=== PATIENT | male | born 1975 | race Hispanic/Latino ===

== ENCOUNTER 2016-09-30 22:04 | Observation (INO) | payer OTHER ==
--- NOTE | 2016-09-30 23:03 | ED PDOC ---
HPI: Chest Pain Time Seen by Provider: 09/30/16 22:26 Chief Complaint (Nursing): Chest Pain Chief Complaint (Provider): Chest pain History Per: Patient History/Exam Limitations: no limitations Onset/Duration Of Symptoms: Hrs (2), Waxing/Waning Severity: Moderate Quality: Pressure, "Pain" Associated Symptoms: denies: Nausea, Diaphoresis Additional History Per: Patient Additional Complaint(s): The pt is a 41yo male with PMHx of HTN, shoulder bursitis, recreational substance abuse, presents to the ED for evaluation of atraumatic, left sided, pressure like chest pain which started while laying down, since 2 hours TRENCH TRIMMER FINE. Pt admits to using cocaine yesterday as well as illicit ketamine. he denies nay nausea, vomiting, diarrhea and diaphoresis. At present, pt offers no additional medical complaints. PMD: None provided Past Medical History Reviewed: Historical Data, Nursing Documentation, Vital Signs Vital Signs: Last Vital Signs Temp 98.2 F 09/30/16 22:14 Pulse 87 10/01/16 04:27 Resp 16 10/01/16 04:27 BP 133/76 10/01/16 04:27 Pulse Ox 97 10/01/16 03:24 - Medical History PMH: Fractures (l arm), HTN (ON NO MEDS) Denies: Chronic Kidney Disease - Surgical History Other surgeries: left forearm reconstructive surgery - Family History Family History: States: No Known Family Hx - Social History Current smoker - smoking cessation education provided: Yes Alcohol: > 2 Drinks/Day Drugs: Cannabis, Cocaine, Other (ketamine) - Immunization History Hx Tetanus Toxoid Vaccination: No Hx Influenza Vaccination: No Hx Pneumococcal Vaccination: No - Home Medications Home Medications: Ambulatory Orders Medication Instructions Recorded Esomeprazole Magnesium [Nexium] 40 mg PO Q12 09/30/16 Hydrocodone/Acetaminophen [Vicodin 1 tab PO Q8 09/30/16 Es 300 mg-7.5 mg] - Allergies Allergies/Adverse Reactions: Allergies Allergy/AdvReac Type Severity Reaction Status Date / Time No Known Allergies Allergy Verified 09/30/16 22:17 Review of Systems ROS Statement: Except As Marked, All Systems Reviewed And Found Negative Cardiovascular: Positive for: Chest Pain Gastrointestinal: Negative for: Nausea, Vomiting, Diarrhea Physical Exam - Reviewed Nursing Documentation Reviewed: Yes Vital Signs Reviewed: Yes - Physical Exam Appears: Positive for: Well, Non-toxic, No Acute Distress Head Exam: Positive for: ATRAUMATIC, NORMAL INSPECTION, NORMOCEPHALIC Skin: Positive for: Normal Color, Warm, DRY Eye Exam: Positive for: Normal appearance Neck: Positive for: Normal, Supple Cardiovascular/Chest: Positive for: Regular Rate, Rhythm. Negative for: Murmur Respiratory: Positive for: Normal Breath Sounds. Negative for: Respiratory Distress Gastrointestinal/Abdominal: Positive for: Normal Exam Extremity: Positive for: Normal ROM. Negative for: Deformity Neurologic/Psych: Positive for: Alert, Oriented - Laboratory Results Result Diagrams: 09/30/16 23:08 09/30/16 23:08 - ECG O2 Sat by Pulse Oximetry: 98 (RA) Pulse Ox Interpretation: Normal Medical Decision Making Medical Decision Making: Time: 2225 Impression: Chest pain in setting of cocaine abuse Plan: -- EKG -- CBC -- CMP -- Troponin -- CXR --Reassess Scribe Attestation: Documented by Shaunna Arce acting as a scribe for Juan Holt MD. Provider Attestation: All medical record entries made by the Scribe were at my direction and personally dictated by me. I have reviewed the chart and agree that the record accurately reflects my personal performance of the history, physical exam, medical decision making, and the department course for this patient. I have also personally directed, reviewed, and agree with the discharge instructions and disposition. ED OBSERVATION Date of observation admission: 09/30/16 Time of observation admission: 22:55 - Progress Note Progress Note: 09/30/16 23:00 Case discussed with José Luis Ovalle who is aware. Pt to be admitted under medical service Disposition - Clinical Impression Clinical Impression: Chest pain - Patient ED Disposition Is Patient to be Admitted: Yes Counseled Patient/Family Regarding: Studies Performed, Diagnosis - Disposition Disposition Time: 22:55 Condition: STABLE - Pt Status Changed To: Hospital Disposition Of: Observation
[2016-09-30 23:11] LABS: BASO % 0.6 % (0.0-2.0); EOS # 0.2 K/uL (0.0-0.7); EOS % 2.2 % (0.0-4.0); LYMPH # 2.5 K/uL (1.0-4.3); MEAN CELL VOLUME 88.9 fl (80.0-94.0); MEAN CORPUSCULAR HEMOGLOBIN 29.5 pg (27.0-31.0); MEAN CORPUSCULAR HGB CONC 33.2 g/dL (33.0-37.0); MEAN PLATELET VOLUME 7.8 fl (7.2-11.7); MONO # 0.8 K/uL (0.0-0.8); MONO % 10.1 % (0.0-10.0); NEUT # 4.3 K/uL (1.8-7.0); NEUT % 55.1 % (50.0-75.0); RED CELL DISTRIBUTION WIDTH 13.2 % (11.5-14.5); WHITE BLOOD COUNT 7.8 K/uL (4.8-10.8)
[2016-09-30 23:23] LABS: ALB/GLOB RATIO 1.2 (1.0-2.1); ALKALINE PHOSPHATASE 133 U/L (38-126); ALT/SGPT 59 U/L (21-72); AST/SGOT 43 U/L (17-59); BILIRUBIN,TOTAL 0.5 mg/dl (0.2-1.3); BLOOD UREA NITROGEN 22 mg/dl (9-20); CALCIUM 8.5 mg/dL (8.4-10.2); CARBON DIOXIDE 25 mmol/L (22-30); CHLORIDE 108 mmol/L (98-107); GFR AFRICAN-AMERICAN > 60; GLUCOSE,RANDOM 131 mg/dL (75-110); POTASSIUM 3.8 MMOL/L (3.6-5.0); SODIUM 147 mmol/l (132-148); TOTAL PROTEIN 7.3 G/DL (6.3-8.2)
[2016-09-30] MEDS ORDERED: Oxycodone/Acetaminophen 5/325 mg Tab ONE (23:49)
[2016-09-30] MEDS ORDERED: Oxycodone/Acetaminophen 5/325 mg Tab PO ONE (23:50)
[2016-10-01 07:24] LABS: BASO # 0.1 K/uL (0.0-0.2); BASO % 0.7 % (0.0-2.0); EOS # 0.2 K/uL (0.0-0.7); EOS % 3.1 % (0.0-4.0); LYMPH # 2.6 K/uL (1.0-4.3); LYMPH % 36.1 % (20.0-40.0); MEAN CORPUSCULAR HEMOGLOBIN 29.5 pg (27.0-31.0); MEAN CORPUSCULAR HGB CONC 33.1 g/dL (33.0-37.0); MEAN PLATELET VOLUME 8.2 fl (7.2-11.7); MONO # 0.9 K/uL (0.0-0.8); MONO % 12.3 % (0.0-10.0); NEUT # 3.4 K/uL (1.8-7.0); NEUT % 47.8 % (50.0-75.0); NRBC % 0.1 % (0.0-0.0); RED CELL DISTRIBUTION WIDTH 13.4 % (11.5-14.5); WHITE BLOOD COUNT 7.2 K/uL (4.8-10.8)
[2016-10-01 07:38] LABS: ALB/GLOB RATIO 1.2 (1.0-2.1); ALKALINE PHOSPHATASE 133 U/L (38-126); ALT/SGPT 55 U/L (21-72); AST/SGOT 33 U/L (17-59); BILIRUBIN,TOTAL 0.6 mg/dl (0.2-1.3); BLOOD UREA NITROGEN 25 mg/dl (9-20); CALCIUM 8.6 mg/dL (8.4-10.2); CARBON DIOXIDE 27 mmol/L (22-30); CHLORIDE 107 mmol/L (98-107); GFR AFRICAN-AMERICAN > 60; GLUCOSE,RANDOM 105 mg/dL (75-110); SODIUM 147 mmol/l (132-148); TOTAL PROTEIN 6.6 G/DL (6.3-8.2)
--- NOTE | 2016-10-01 08:19 | CP.PCM.HP ---
History of Present Illness - History of Present Illness History of Present Illness: pt admitted for left sided flank/cp. at present pt is pain free except for r shoulder pain where pt has slap tear. is on chronic vicodin for same. pt states firday night did 2 lines of cocaine and ketamine. states cp started sat night then came to er 30 min later. no pain since. bw noted. trops x 2 negative. imaging noted. pending cardio consult. ekg noted. Present on Admission - Present on Admission Any Indicators Present on Admission: No Review of Systems - Cardiovascular Cardiovascular: As Per HPI, Chest Pain - Musculoskeletal Musculoskeletal: As Per HPI, Arthralgias Past Patient History - Infectious Disease Hx of Infectious Diseases: None - Past Medical History & Family History Past Medical History?: Yes - Past Social History Smoking Status: Light Smoker < 10 Cigarettes Daily - CARDIAC Hx Cardiac Disorders: Yes Hx Hypertension: Yes (ON NO MEDS) - PULMONARY Hx Respiratory Disorders: No - NEUROLOGICAL Hx Neurological Disorder: No - HEENT Hx HEENT Problems: No - RENAL Hx Chronic Kidney Disease: No - ENDOCRINE/METABOLIC Hx Endocrine Disorders: No - HEMATOLOGICAL/ONCOLOGICAL Hx Blood Disorders: No Hx AIDS: No Hx Human Immunodeficiency Virus (HIV): No - INTEGUMENTARY Hx Dermatological Problems: No - MUSCULOSKELETAL/RHEUMATOLOGICAL Hx Musculoskeletal Disorders: Yes Hx Falls: Yes Hx Fractures: Yes (l arm) - GASTROINTESTINAL Hx Gastrointestinal Disorders: No - GENITOURINARY/GYNECOLOGICAL Hx Genitourinary Disorders: No - PSYCHIATRIC Hx Psychophysiologic Disorder: No Hx Substance Use: Yes (uses cannabis,cocaine) - SURGICAL HISTORY Hx Surgeries: Yes Other/Comment: left arm reconstructive surgery with nerve graft 2006 - ANESTHESIA Hx Anesthesia: Yes Hx Anesthesia Reactions: No Hx Malignant Hyperthermia: No Meds Allergies/Adverse Reactions: Allergies Allergy/AdvReac Type Severity Reaction Status Date / Time No Known Allergies Allergy Verified 09/30/16 22:17 Physical Exam - Constitutional Appears: Well, Non-toxic, No Acute Distress - Head Exam Head Exam: ATRAUMATIC, NORMAL INSPECTION, NORMOCEPHALIC - Eye Exam Eye Exam: EOMI, Normal appearance, PERRL Pupil Exam: NORMAL ACCOMODATION, PERRL - ENT Exam ENT Exam: Mucous Membranes Moist, Normal Exam - Neck Exam Neck exam: Positive for: Normal Inspection - Respiratory Exam Respiratory Exam: Clear to Auscultation Bilateral, NORMAL BREATHING PATTERN - Cardiovascular Exam Cardiovascular Exam: REGULAR RHYTHM, RRR, +S1, +S2 - GI/Abdominal Exam GI & Abdominal Exam: Normal Bowel Sounds, Soft. absent: Tenderness - Rectal Exam Rectal Exam: NORMAL INSPECTION - Extremities Exam Extremities exam: Positive for: full ROM, normal capillary refill, normal inspection, tenderness, pedal pulses present Additional comments: pain w/ bereket nd decr rom r shoulder - Back Exam Back exam: NORMAL INSPECTION - Neurological Exam Neurological exam: Alert, CN II-XII Intact, Normal Gait, Oriented x3, Reflexes Normal - Psychiatric Exam Psychiatric exam: Normal Affect, Normal Mood - Skin Skin Exam: Dry, Intact, Normal Color, Warm Results - Vital Signs Recent Vital Signs: Last Vital Signs Temp 97.9 F 10/01/16 05:11 Pulse 72 10/01/16 05:11 Resp 18 10/01/16 05:11 BP 154/110 H 10/01/16 05:11 Pulse Ox 98 10/01/16 05:11 - Labs Result Diagrams: 10/01/16 05:30 10/01/16 05:30 Labs: Laboratory Results - last 24 hr 09/30/16 10/01/16 23:08 05:30 WBC 7.8 7.2 RBC 4.72 4.38 L Hgb 13.9 12.9 Hct 42.0 39.0 MCV 88.9 89.0 MCH 29.5 29.5 MCHC 33.2 33.1 RDW 13.2 13.4 Plt Count 267 231 MPV 7.8 8.2 Neut % (Auto) 55.1 47.8 L Lymph % (Auto) 32.0 36.1 Clinch % (Auto) 10.1 H 12.3 H Eos % (Auto) 2.2 3.1 Baso % (Auto) 0.6 0.7 Neut # 4.3 3.4 Lymph # 2.5 2.6 Clinch # 0.8 0.9 H Eos # 0.2 0.2 Baso # 0.0 0.1 Sodium 147 147 Potassium 3.8 4.0 Chloride 108 H 107 Carbon Dioxide 25 27 Anion Gap 18 18 BUN 22 H 25 H Creatinine 0.9 0.9 Est GFR ( Amer) > 60 > 60 Est GFR (Non-Af Amer) > 60 > 60 Random Glucose 131 H 105 Calcium 8.5 8.6 Total Bilirubin 0.5 0.6 AST 43 33 ALT 59 55 Alkaline Phosphatase 133 H 133 H Troponin I < 0.0120 < 0.0120 Total Protein 7.3 6.6 Albumin 3.9 3.6 Globulin 3.4 3.0 Albumin/Globulin Ratio 1.2 1.2 Assessment & Plan (1) Chest pain Assessment and Plan: trophs, asa, cardio likey dc Status: Acute (2) Right shoulder pain Assessment and Plan: vicodin-dc at length ilicit drug use w/ this med outpt ortho Status: Acute (3) DVT prophylaxis Assessment and Plan: scd nad aheose ambulation Status: Acute Decision To Admit - Pt Status Changed To: Hospital Disposition Of: Observation - . Bed Request Type: Telemetry Admitting Physician: Kunal Arshad
[2016-10-01] MEDS ORDERED: Pantoprazole 40 mg EC Tab PO SCH (09:00)
[2016-10-01] MEDS ORDERED: Oxycodone/Acetaminophen 5/325 mg Tab PO PRN (09:18)
--- NOTE | 2016-10-01 12:26 | RAD ---
HISTORY: Chest pain. Technique: Single view portable erect @ 23:08. COMPARISON: 05/07/2008. FINDINGS: LUNGS: No active pulmonary disease. PLEURA: No significant pleural effusion identified, no pneumothorax apparent. CARDIOVASCULAR: Normal. OSSEOUS STRUCTURES: No significant abnormalities. VISUALIZED UPPER ABDOMEN: Normal. OTHER FINDINGS: None. IMPRESSION: No active disease. No significant interval change compared to the prior examination(s).
--- NOTE | 2016-10-01 15:33 | CP.PCM.DIS ---
Provider - Provider Date of Admission: 09/30/16 22:55 Attending physician: Kunal Arshad MD Time Spent in preparation of Discharge (in minutes): 15 Diagnosis - Discharge Diagnosis (1) Chest pain Status: Acute (2) Right shoulder pain Status: Acute (3) DVT prophylaxis Status: Acute Hospital Course - Lab Results Lab Results: Most Recent Lab Values WBC 7.2 K/uL (4.8-10.8) 10/01/16 05:30 RBC 4.38 Mil/uL (4.40-5.90) L 10/01/16 05:30 Hgb 12.9 g/dL (12.0-18.0) 10/01/16 05:30 Hct 39.0 % (35.0-51.0) 10/01/16 05:30 MCV 89.0 fl (80.0-94.0) 10/01/16 05:30 MCH 29.5 pg (27.0-31.0) 10/01/16 05:30 MCHC 33.1 g/dL (33.0-37.0) 10/01/16 05:30 RDW 13.4 % (11.5-14.5) 10/01/16 05:30 Plt Count 231 K/uL (130-400) 10/01/16 05:30 MPV 8.2 fl (7.2-11.7) 10/01/16 05:30 Neut % (Auto) 47.8 % (50.0-75.0) L 10/01/16 05:30 Lymph % (Auto) 36.1 % (20.0-40.0) 10/01/16 05:30 [place] % (Auto) 12.3 % (0.0-10.0) H 10/01/16 05:30 Eos % (Auto) 3.1 % (0.0-4.0) 10/01/16 05:30 Baso % (Auto) 0.7 % (0.0-2.0) 10/01/16 05:30 Neut # 3.4 K/uL (1.8-7.0) 10/01/16 05:30 Lymph # 2.6 K/uL (1.0-4.3) 10/01/16 05:30 [place] # 0.9 K/uL (0.0-0.8) H 10/01/16 05:30 Eos # 0.2 K/uL (0.0-0.7) 10/01/16 05:30 Baso # 0.1 K/uL (0.0-0.2) 10/01/16 05:30 Sodium 147 mmol/l (132-148) 10/01/16 05:30 Potassium 4.0 MMOL/L (3.6-5.0) 10/01/16 05:30 Chloride 107 mmol/L (98-107) 10/01/16 05:30 Carbon Dioxide 27 mmol/L (22-30) 10/01/16 05:30 Anion Gap 18 (10-20) 10/01/16 05:30 BUN 25 mg/dl (9-20) H 10/01/16 05:30 Creatinine 0.9 mg/dL (0.8-1.5) 10/01/16 05:30 Est GFR ( Amer) > 60 10/01/16 05:30 Est GFR (Non-Af Amer) > 60 10/01/16 05:30 Random Glucose 105 mg/dL (75-110) 10/01/16 05:30 Calcium 8.6 mg/dL (8.4-10.2) 10/01/16 05:30 Total Bilirubin 0.6 mg/dl (0.2-1.3) 10/01/16 05:30 AST 33 U/L (17-59) 10/01/16 05:30 ALT 55 U/L (21-72) 10/01/16 05:30 Alkaline Phosphatase 133 U/L (38-126) H 10/01/16 05:30 Troponin I < 0.0120 ng/mL (0.00-0.120) 10/01/16 12:30 Total Protein 6.6 G/DL (6.3-8.2) 10/01/16 05:30 Albumin 3.6 g/dL (3.5-5.0) 10/01/16 05:30 Globulin 3.0 gm/dL (2.2-3.9) 10/01/16 05:30 Albumin/Globulin Ratio 1.2 (1.0-2.1) 10/01/16 05:30 Urine Opiates Screen Positive (NEGATIVE) H 09/30/16 00:01 Urine Methadone Screen Negative (NEGATIVE) 09/30/16 00:01 Ur Barbiturates Screen Negative (NEGATIVE) 09/30/16 00:01 Ur Phencyclidine Scrn Negative (NEGATIVE) 09/30/16 00:01 Ur Amphetamines Screen Negative (NEGATIVE) 09/30/16 00:01 U Benzodiazepines Scrn Negative (NEGATIVE) 09/30/16 00:01 U Oth Cocaine Metabols Positive (NEGATIVE) H 09/30/16 00:01 U Cannabinoids Screen Negative (NEGATIVE) 09/30/16 00:01 Discharge Exam - Head Exam Head Exam: ATRAUMATIC, NORMAL INSPECTION, NORMOCEPHALIC Discharge Plan - Follow Up Plan Condition: STABLE Disposition: HOME/ ROUTINE Additional Instructions: cleared by cardio, trops x 3 negative. rted prn. f/u rmg 2 days. final dx noncardiac cp. r shoulder pain, polysubstand abuse
[2016-10-01 15:47] VITALS: BP 132/91; PULSE 62; RESP 20; TEMP 98.1; O2SAT 99
--- NOTE | 2016-10-01 20:49 | CARD ---
APPROVED REPORT EKG Measurement Heart [id number] <Conclusion> Normal sinus rhythm Moderate voltage criteria for LVH, may be normal variant Borderline ECG
--- NOTE | 2016-10-01 21:35 | CP.PCM.CON ---
History of Present Illness - History of Present Illness History of Present Illness: I was asked to see patient by Dr. Arshad and José Luis Ovalle APN. Patient is a 41 year old male who presents with chest pain. He uses vicodin chronically, and was found to use cocaine and ketamine. He developed left flank and chest pain. He was admitted to telemetry for observation. He has ruled out for myocardial infarction. Review of Systems - Constitutional Constitutional: absent: As Per HPI, Anorexia, Chills, Daytime Sleepiness, Excessive Sweating, Fatigue, Fever, Frequent Falls, Headache, Increased Appetite , Lethargy, Malaise, Night Sweats, Snoring, Sleep Apnea, Weight Gain, Weight Loss, Weakness, Other - EENT Eyes: absent: As Per HPI, Blind Spots, Blurred Vision, Change in Vision, Decreased Night Vision, Diplopia, Discharge, Dry Eye, Exophthalmos, Floaters, Irritation, Itchy Eyes, Loss of Peripheral Vision, Pain, Photophobia, Requires Corrective Lenses, Sees Flashes, Spots in Vision, Tunnel Vision, Other Visual Disturbances, Loss of Vision, Other Ears: absent: As Per HPI, Decreased Hearing, Ear Discharge, Ear Pain, Tinnitus, Abnormal Hearing, Disequilibrium, Dizziness, Other Nose/Mouth/Throat: absent: As Per HPI, Epistaxis, Nasal Congestion, Nasal Discharge, Nasal Obstruction, Nasal Trauma, Nose Pain, Post Nasal Drip, Sinus Pain, Sinus Pressure, Bleeding Gums, Change in Voice, Dental Pain, Dry Mouth, Dysphagia, Halitosis, Hoarsness, Lip Swelling, Mouth Lesions, Mouth Pain, Odynophagia, Sore Throat, Throat Swelling, Tongue Swelling, Facial Pain, Neck Pain, Neck Mass, Other - Cardiovascular Cardiovascular: Chest Pain - Respiratory Respiratory: absent: As Per HPI, Cough, Dyspnea, Hemoptysis, Dyspnea on Exertion , Wheezing, Snoring, Stridor, Pain on Inspiration, Chest Congestion, Excessive Mucous Production, Change in Mucous Color, Pain with Coughing, Other - Gastrointestinal Gastrointestinal: absent: As Per HPI, Abdominal Pain, Belching, Bloating, Change in Bowel Habits, Change in Stool Character, Coffee Ground Emesis, Constipation, Cramping, Diarrhea, Dyspepsia, Dysphagia, Early Satiety, Excessive Flatus, Fecal Incontinence, Heartburn, Hematemesis, Hematochezia, Loose Stools, Melena, Nausea, Odynophagia, Temesmus, Vomiting, Other - Genitourinary Genitourinary: absent: As Per HPI, Change in Urinary Stream, Difficulty Urinating, Dysuria, Flank Pain, Hematuria, Pyuria, Nocturia, Urinary Incontinence, Urinary Frequency, Urinary Hesitance, Urinary Urgency, Voiding Freq/Small Amts, Freq UTI, Hx Renal/Bladder Calculi, Hx /Renal Surgery, Bladder Distension, Other - Musculoskeletal Musculoskeletal: absent: As Per HPI, Abnormal Gait, Arthralgias, Atrophy, Back Pain, Deformity, Joint Swelling, Limited Range of Motion, Loss of Height, Muscle Cramps, Muscle Weakness, Myalgias, Neck Pain, Numbness, Radiating Pain into Limb, Stiffness, Tingling, Other - Integumentary Integumentary: absent: As Per HPI, Acne, Alopecia, Bleeding Lesions, Change in Hair, Change in Nails, Change in Pigmentation, Changing Lesions, Dry Skin, Erythema, Furuncle, Hirsutism, Lesions, New Lesions, Non-Healing Lesions, Photosensitivity, Pruritus, Rash, Skin Pain, Skin Ulcer, Sores, Striae, Swelling , Unusual Bruising, Wounds, Jaundice, Other - Neurological Neurological: absent: As Per HPI, Abnormal Gait, Abnormal Hearing, Abnormal Movements, Abnormal Speech, Behavioral Changes, Burning Sensations, Confusion, Convulsions, Disequilibrium, Dizziness, Numbness, Focal Weakness, Frequent Falls , Headaches, Lack of Coordination, Loss of Vision, Memory Loss, Paresthesias, Radicular Pain, Restless Legs, Sensory Deficit, Syncope, Tingling, Tremor, Vertigo, Weakness, Other Visual Disturbances, Other - Psychiatric Psychiatric: absent: As Per HPI, Abnormal Sleep Pattern, Anhedonia, Anxiety, Auditory Hallucinations, Behavioral Changes, Change in Appetite, Change in Libido, Confusion, Depression, Difficulty Concentrating, Hallucinations, Homicidal Ideation, Hopelessness, Irritability, Memory Loss, Mood Swings, Panic Attacks, Paranoia, Suicidal Ideation, Visual Hallucinations, Tactile Hallucinations, Other - Endocrine Endocrine: absent: As Per HPI, Change in Body Appearance, Change in Libido, Cold Intolorance, Deepening of Voice, Excessive Sweating, Fatigue, Flushing, Heat Intolorance, Increase in Ring/Shoe/Hat Size, Palpitations, Polydipsia, Polyphagia, Polyuria, Other - Hematologic/Lymphatic Hematologic: absent: As Per HPI, Easy Bleeding, Easy Bruising, Lymphadenopathy, Other Past Patient History - Infectious Disease Hx of Infectious Diseases: None - Past Medical History & Family History Past Medical History?: Yes - Past Social History Smoking Status: Light Smoker < 10 Cigarettes Daily - CARDIAC Hx Cardiac Disorders: Yes Hx Hypertension: Yes (ON NO MEDS) - PULMONARY Hx Respiratory Disorders: No - NEUROLOGICAL Hx Neurological Disorder: No - HEENT Hx HEENT Problems: No - RENAL Hx Chronic Kidney Disease: No - ENDOCRINE/METABOLIC Hx Endocrine Disorders: No - HEMATOLOGICAL/ONCOLOGICAL Hx Blood Disorders: No Hx AIDS: No Hx Human Immunodeficiency Virus (HIV): No - INTEGUMENTARY Hx Dermatological Problems: No - MUSCULOSKELETAL/RHEUMATOLOGICAL Hx Musculoskeletal Disorders: Yes Hx Falls: Yes Hx Fractures: Yes (l arm) - GASTROINTESTINAL Hx Gastrointestinal Disorders: No - GENITOURINARY/GYNECOLOGICAL Hx Genitourinary Disorders: No - PSYCHIATRIC Hx Psychophysiologic Disorder: No Hx Substance Use: Yes (uses cannabis,cocaine) - SURGICAL HISTORY Hx Surgeries: Yes Other/Comment: left arm reconstructive surgery with nerve graft 2006 - ANESTHESIA Hx Anesthesia: Yes Hx Anesthesia Reactions: No Hx Malignant Hyperthermia: No Meds Home Medications: Home Medication List Medication Instructions Recorded Confirmed Type Aspirin [Aspirin Chewable] 81 mg PO DAILY chew 10/01/16 Rx Allergies/Adverse Reactions: Allergies Allergy/AdvReac Type Severity Reaction Status Date / Time No Known Allergies Allergy Verified 09/30/16 22:17 Physical Exam - Constitutional Appears: Non-toxic - Head Exam Head Exam: NORMAL INSPECTION - Eye Exam Eye Exam: Normal appearance - ENT Exam ENT Exam: Mucous Membranes Moist - Neck Exam Neck exam: Positive for: Full Rom - Respiratory Exam Respiratory Exam: Decreased Breath Sounds - Cardiovascular Exam Cardiovascular Exam: REGULAR RHYTHM - GI/Abdominal Exam GI & Abdominal Exam: Normal Bowel Sounds - Rectal Exam Rectal Exam: Deferred - Extremities Exam Extremities exam: Negative for: pedal edema - Back Exam Back exam: NORMAL INSPECTION - Neurological Exam Neurological exam: Alert, Oriented x3 - Psychiatric Exam Psychiatric exam: Normal Affect - Skin Skin Exam: Normal Color Results - Vital Signs Recent Vital Signs: Last Vital Signs Temp 98.1 F 10/01/16 15:46 Pulse 62 10/01/16 15:46 Resp 20 10/01/16 15:46 BP 132/91 H 10/01/16 15:46 Pulse Ox 99 04/16/17 15:46 - Labs Result Diagrams: 10/01/16 05:30 10/01/16 05:30 Labs: Laboratory Results - last 24 hr 09/30/16 10/01/16 10/01/16 23:08 05:30 12:30 WBC 7.8 7.2 RBC 4.72 4.38 L Hgb 13.9 12.9 Hct 42.0 39.0 MCV 88.9 89.0 MCH 29.5 29.5 MCHC 33.2 33.1 RDW 13.2 13.4 Plt Count 267 231 MPV 7.8 8.2 Neut % (Auto) 55.1 47.8 L Lymph % (Auto) 32.0 36.1 [place] % (Auto) 10.1 H 12.3 H Eos % (Auto) 2.2 3.1 Baso % (Auto) 0.6 0.7 Neut # 4.3 3.4 Lymph # 2.5 2.6 [place] # 0.8 0.9 H Eos # 0.2 0.2 Baso # 0.0 0.1 Sodium 147 147 Potassium 3.8 4.0 Chloride 108 H 107 Carbon Dioxide 25 27 Anion Gap 18 18 BUN 22 H 25 H Creatinine 0.9 0.9 Est GFR ( Amer) > 60 > 60 Est GFR (Non-Af Amer) > 60 > 60 Random Glucose 131 H 105 Calcium 8.5 8.6 Total Bilirubin 0.5 0.6 AST 43 33 ALT 59 55 Alkaline Phosphatase 133 H 133 H Troponin I < 0.0120 < 0.0120 < 0.0120 Total Protein 7.3 6.6 Albumin 3.9 3.6 Globulin 3.4 3.0 Albumin/Globulin Ratio 1.2 1.2 - EKG Data EKG Interpreted by: Myself EKG shows normal: Sinus rhythm Assessment & Plan (1) Chest pain Assessment and Plan: patient has ruled out for myocardial infarction. I had an extensive discussion with the patient regarding risk of premature atherosclerosis and coronary thrombosis associated with cocaine. The patient will benefit from outpatient stress test. Lifestyle modification stressed. Status: Acute
== END 2016-10-01 16:35 | disposition home or self-care (01) ==
LOC: H.ER 22:04 → H.ERHOLD 22:55 → H.TEL 10-01 05:05
PROVIDERS: ADMIT Family Medicine; ATTEND Family Medicine
DX: R07.89 Other chest pain (principal); F14.10 Cocaine abuse, uncomplicated; M75.51 Bursitis of right shoulder; M25.511 Pain in right shoulder; F12.10 Cannabis abuse, uncomplicated; I10 Essential (primary) hypertension; F17.210 Nicotine dependence, cigarettes, uncomplicated; Z82.49 Family history of ischemic heart disease and other diseases of the circulatory system